=== PATIENT | male | born 1955 | race Two or more races ===

== ENCOUNTER 2024-06-18 18:15 | Emergency (ER) | payer OTHER, SELFPAY ==
[2024-06-18 18:29] VITALS: BP 157/85
[2024-06-18 18:58] LABS: % Basophils 0.6 % (0-2); % Eosinophils 2.2 % (0-6); % Immature Granulocytes 0.3 % (0-0.5); % Lymphocytes 28.9 % (20.5-51.1); Absolute Eosinophils 0.2 10^3/uL (0-0.7); Absolute Lymphocytes 2.1 10^3/uL (1.2-3.4); Absolute Monocytes 0.7 10^3/uL (0.1-0.6); Absolute Neutrophils 4.2 10^3/uL (1.4-6.5); Mean Corp Hgb Conc. 28.6 g/dL (33.0-37.0); Mean Corpuscular Volume 66.5 fL (80.0-94.0); Nucleated Red Blood Cells % 0 % (-); Platelet Count 305 10^3/uL (130-400); Red Blood Cell Count 4.21 10^6/uL (4.70-6.10); Red Cell Dist. Width 19.1 % (11.5-14.5); White Blood Cell Count 7.2 10^3/uL (4.8-10.8)
[2024-06-18 19:06] LABS: ALT (SGPT) 22 U/L (0-50); AST (SGOT) 25 U/L (17-59); Albumin 4.4 g/dl (3.5-5.0); Alkaline Phosphatase 72 U/L (38-126); Blood Urea Nitrogen 26 mg/dl (9-20); Calcium 8.9 mg/dl (8.4-10.2); Carbon Dioxide 23 mmol/L (22-30); Chloride 105 mmol/L (98-107); Glucose 114 mg/dl (70-99); Potassium 4.9 mmol/L (3.5-5.1); Sodium 139 mmol/L (135-145); Total Bilirubin 0.2 mg/dl (0.2-1.3); Total Protein 7.5 g/dl (6.3-8.2); eGFR > 60.00
[2024-06-18 19:08] LABS: Normal RBC Morphology No
[2024-06-18 19:10] LABS: Microcytosis 1+
[2024-06-18 19:11] LABS: Hypochromasia 2+; Troponin I 0.014 ng/ml
[2024-06-18 19:12] LABS: Burr Cells 1+; Target Cells 1+
--- NOTE | 2024-06-18 21:30 | ED.GENMED ---
History of Present Illness
General
Chief Complaint: Chest Pain
Source: patient and family
Time Seen by Provider: 06/18/24 21:02
History of Present Illness
History of Present Illness:
This patient is a 68-year-old male whose primary language is not [place] however at his request, his son is bedside serving as a rerecording mixer. He states that he has a 'ache' to the left anterior chest that started last night after he heard some
stressful news. It is described as a 'pinching'. This lasted throughout the night and then went away today. However, the pain returned again a few hours ago. It is mild in intensity. He denies associated nausea, vomiting, fever, chills, neck
pain, jaw pain, headache, back pain. He denies exacerbating relieving factors, associated dyspnea. Is not pleuritic in nature. He denies sore throat or rhinorrhea or new cough. Interestingly, he does note that when he drinks something cold it
triggers him to have a cough.
Past History
Past History
ED Past Medical History: HTN
ED Past Surgical History: None
Social History
Tobacco: Non-smoker
Alcohol: None
Drug: None
Living: with family
Phy Exam
Physical Exam
Physical Exam:
GENERAL: Alert , in no apparent distress
EYE: pupils equal and reactive
NECK: Supple, no significant adenopathy.
ENT: o/p clr, mmm.
CARDIAC: Regular rate and rhythm .
LUNGS: Clear breath sounds bilaterally, no acute respiratory distress, no wheezes/rales/rhonchi
ABDOMEN: Soft, without focal tenderness, no r/g, no cvat
NEUROLOGICAL: Alert and oriented, no focal neuro deficits
SKIN: Warm and dry, skin intact.
MUSCULOSKELETAL: No edema, well perfused.
PSYCH: Normal and appropriate interaction.
Scores
Heart Score for Chest Pain Patients
STEMI patient?: Not applicable
Course
Orders/Labs/Results
Orders:
Orders
06/18/24 18:16
EKG [Electrocardiogram (*1)] Stat
Reason for Study: Chest Pain
EKG- Treatment ONCE
06/18/24 18:36
Complete Blood Count/With Diff Urgent
Comprehensive Metabolic Panel Urgent
Troponin I Urgent
06/18/24 18:59
CR Chest - 2 Views Urgent
Comment:
Reason For Exam: cough
06/18/24 21:43
Troponin I Urgent
Abnormal Lab Results
06/18/24
18:36
RBC 4.21 L 10^6/uL
(4.70-6.10)
Hgb 8.0 L g/dL
(13.0-18.0)
Hct 28.0 L %
(39.0-52.0)
MCV 66.5 L fL
(80.0-94.0)
MCH 19.0 L pg
(27.0-31.0)
MCHC 28.6 L g/dL
(33.0-37.0)
RDW 19.1 H %
(11.5-14.5)
Absolute Monos (auto) 0.7 H 10^3/uL
(0.1-0.6)
Monocytes % 10.0 H %
(1.7-9.3)
BUN 26 H mg/dl
(9-20)
Glucose 114 H mg/dl
(70-99)
06/18/24 18:36
06/18/24 18:36
Vital Signs
Initial and Last Documented VS:
Initial Vital Signs
Temp Pulse Resp BP Pulse Ox
98.2 F 84 16 157/85 99
06/18/24 18:29 06/18/24 18:29 06/18/24 18:29 06/18/24 18:29 06/18/24 18:29
Last Documented Vital Signs
Temp Pulse Resp BP Pulse Ox
98.2 F 86 17 150/84 99
06/18/24 18:29 06/18/24 22:15 06/18/24 22:15 06/18/24 22:00 06/18/24 22:15
*Critical Care Note
Total Time (30-74mins, 75-104mins- exclusive of procedures): Not Applicable
Update Note
Update Note:
Patient presents to the Emergency Department with __chest pain
Number and Complexity of Problems Addressed at the Encounter
� Chronic conditions affecting care:
� Acute Exacerbation and/or Progression of Chronic Illness:
� Differential Diagnosis includes: But not limited to ACS, anxiety, pleurisy, pneumothorax, PE, etc. etc.
Amount and/or Complexity of Data to be Reviewed and Analyzed
� I performed an independent evaluation of and my interpretation is:
EKG: Read by me, normal sinus rhythm, normal rate, normal axis, no acute ischemia
CT:
Xrays: Read by me, NAD, no pneumothorax, normal heart size
Laboratory Studies: Anemia noted, no prior for comparison.
Other:
� Review of other/old records reveals:
� Clinical information was obtained by an independent historian: Son who is bedside
� Prescriptions/Medications Considered but not given:
� Further testing considered but not performed:
Risk of Complications and/or Morbidity or Mortality of Patient Management
� Social determinants of health affecting care:
� Discussion with other providers (PCP, Hospitalists, Consultants, etc):
� Escalation of care including admission/observation vs risk of discharge considered: Patient noted to have anemia here at a level of 8. No history of bleeding, black stool, heavy nonsteroidal use, etc. Do not suspect
clinically that this is the reason for patient's intermittent pain. He will however need this closely followed as an outpatient and I will emphasize this to him and his family. Repeat troponin ordered for now. If unremarkable, and patient
remained stable, he is appropriate for outpatient management of his symptoms as he does not exhibit signs to suggest unstable angina/STEMI/dissection/PE, etc.
Repeat trop wnl, pt pain free. Again emphasized his dx of anemia nd import of f/u
ED Attending Note
-
Portions of this chart may have been created with voice recognition software.� Occasional wrong word or��sound alike� substitutions may have occurred due to the inherent limitations of voice recognition software.
Discharge Plan
Departure
Patient Disposition: Home (Routine Discharge)
Date of Disposition: 06/18/24
Time of Disposition: 22:41
Patient with high blood pressure during this ER visit?: Yes
Condition: Good
Discharge Problem:
Chest pain
Instructions: Anemia in adults, possibly from low iron - ED discharge instructions, Chest Pain CBC Follow Up, BLOOD PRESSURE
Referrals:
Scooter Vazquez MD [Active] - Next open appointment
Anthony Granados MD [Family Provider] - Follow up in 2-3 days
Activity Restrictions/Additional Instructions:
YOU HAVE A LOW RED BLOOD CELL COUNT. THIS NEEDS TO BE FOLLOWED CLOSELY BY YOUR DOCTOR. PLEASE BRING YOUR LAB RESULTS (ATTACHED) TO YOUR DOCTOR THIS WEEK. YOU SHOULD ALSO SEE THE NEIGHBORHOOD CONSERVATION OFFICER PROMPTLY. CONTACT THEM THIS WEEK. IF YOU DEVELOP
RECURRENT CHEST PAIN, ANY TROUBLE BREATHING, FEVER, VOMITING, DIZZINESS, OR OTHER WORRISOME SIGNS, GO TO THE ER IMMEDIATELY!
Interventions
Interventions:
*Risk Screen - Suicide Last Done: 06/18/24 18:29
*General Assessment Last Done: 06/18/24 21:46
*Neglect/Abuse Screening Last Done: 06/18/24 18:29
ED- Fall Risk Assessment Last Done: 06/18/24 21:45
*ED COVID-19 Vaccine History Last Done: 06/18/24 22:19
ED- Cardiac Assessment Last Done: 06/18/24 21:45
Discharge Date and Time
Print Language: DOMINICAN
[2024-06-18 21:40] VITALS: BP 150/87
[2024-06-18 22:00] VITALS: BP 150/84
[2024-06-18 22:12] LABS: Troponin I < 0.012 ng/ml
== END 2024-06-18 23:01 | disposition home or self-care (01) ==
LOC: EMR 18:15
PROVIDERS: Emergency Medicine; EMERGENCY PHYSICIAN Emergency Medicine; FAMILY PHYSICIAN Family Medicine
DX: R07.89 Other chest pain (principal); D64.9 Anemia, unspecified; I10 Essential (primary) hypertension
CPT/HCPCS: 99285; 71046; 80053; 84484; 85025; 93005